=== PATIENT | male | born 1940 | race Caucasian/White ===

== ENCOUNTER → 2017-05-31 | Outpatient (CLI) | payer BC ==
--- NOTE | 2017-05-31 09:18 | DIAGNOSTIC IMAGING REPORT ---
RENAL ULTRASOUND HISTORY: CYST OF KIDNEY COMPARISON: None. FINDINGS: Right kidney: 11.5 cm. No hydronephrosis. Normal corticomedullary differentiation. Mild cortical thinning. Multiple cysts with the largest measuring 8.5 cm.. Left kidney: 12.2 cm. Mild fullness within the left renal pelvis without hydronephrosis. Normal corticomedullary differentiation. Mild cortical thinning. Multiple cysts with the largest measuring 2.1 cm. Bladder: No bladder wall thickening. The bilateral ureteral jets were identified. The prostate is mildly enlarged. IMPRESSION: 1. Multiple bilateral renal cysts with the largest on the right measuring 8.5 cm. 2. No hydronephrosis. Electronically signed by: Melquiades Carrillo M.D. 05/31/2017 9:16 AM Dictated Date/Time: 05/31/2017 9:11 AM
== END | disposition home or self-care (01) ==
LOC: C.ULTR 08:32
DX: N28.1 Cyst of kidney, acquired (principal)